=== PATIENT | female | born 1995 | race Caucasian/White ===

== ENCOUNTER → 2016-07-02 | Outpatient (CLI) | payer OTHER ==
--- NOTE | 2016-07-02 22:52 | DIAGNOSTIC IMAGING REPORT ---
MRI OF THE LEFT KNEE CLINICAL HISTORY: Left knee pain. Injury. COMPARISON STUDY: Radiograph of the left knee dated 07/02/2016. TECHNIQUE: MRI of the left knee was performed utilizing proton density, T1, and T2-weighted sequences in the axial, sagittal, coronal planes. IV contrast was not administered for this examination. The examination is degraded by large body habitus which were acquired using the long bone coil. Examination is also degraded by motion artifact. FINDINGS: Menisci: The medial and lateral menisci are intact as imaged. Ligaments: The anterior and posterior cruciate ligaments are intact. The medial and lateral collateral ligaments are within normal limits as visualized. Extensor mechanism: The extensor mechanism is intact. Hoffa's fat pad is normal in appearance. Articular cartilage and bone: There is a comminuted fracture involving the medial patellar facet with distracted fragments. There is tearing of the medial patellar retinaculum with associated lateral subluxation of the patella. No additional fracture is seen. There are small lateral marginal osteophytes. The medial patellar fracture extends through the articular cartilage of the medial facet. There is also full-thickness fissuring seen at the patellar apex. The articular cartilage is otherwise well maintained all 3 compartments. A calcified fabella is noted. Joint effusion: Lipohemarthrosis is noted. Soft tissues: Prepatellar soft tissue edema is observed. The musculature surrounding the knee joint demonstrates symmetric atrophy. Mild intramuscular edema is seen within the vastus medialis muscle. Normal signal intensity is preserved throughout the remaining musculature. IMPRESSION: 1. Degraded examination as above. 2. There is a comminuted fracture involving the medial patellar facet as above with associated lipohemarthrosis. 3. There is tearing of the medial patellar retinaculum with lateral subluxation of the patella. 4. No additional fracture is identified. 5. The menisci, cruciate ligaments, and collateral ligaments appear intact as visualized. 6. The fracture causes disruption of the articular cartilage in the medial patellar facet as above. Electronically signed by: Douglas Hilliard M.D. 07/02/2016 10:50 PM Dictated Date/Time: 07/02/2016 10:44 PM
== END | disposition home or self-care (01) ==
LOC: C.MRI 19:34
PROVIDERS: ATTEND Family Medicine
DX: S82.042A Displaced comminuted fracture of left patella, initial encounter for closed fracture (principal); X58.XXXA Exposure to other specified factors, initial encounter

== ENCOUNTER → 2016-07-02 | Outpatient (CLI) | payer OTHER ==
--- NOTE | 2016-07-02 22:01 | DIAGNOSTIC IMAGING REPORT ---
LEFT KNEE 4 VIEWS CLINICAL HISTORY: Left knee pain. FINDINGS: AP, crosstable lateral, tunnel, and sunrise views of the left knee are obtained. No prior studies are available for comparison at the time of dictation. The skeletal structures are well mineralized. There is a comminuted and distracted fracture involving the medial patellar facet with lateral patellar subluxation. There is associated lipohemarthrosis. No additional fracture is identified. The joint spaces appear maintained. There are lateral marginal osteophytes. No osteochondral defect is seen on the tunnel image. Overlying soft tissue edema is observed. A calcified fabella is incidentally noted. IMPRESSION: 1. There is a comminuted and minimally distracted fracture through the medial patellar facet with lateral patellar subluxation. 2. There is associated lipohemarthrosis and soft tissue swelling. 3. Overlying soft tissue edema is observed. Electronically signed by: Douglas Hilliard M.D. 07/02/2016 10:00 PM Dictated Date/Time: 07/02/2016 9:57 PM
== END | disposition home or self-care (01) ==
LOC: C.RDSM 16:00
PROVIDERS: ATTEND Family Medicine
DX: M25.562 Pain in left knee (principal)

== ENCOUNTER → 2016-07-15 | Outpatient (CLI) | payer OTHER | END | disposition home or self-care (01) | LOC: C.RDSM 09:02 | PROVIDERS: ATTEND Physical Medicine & Rehabilitation Sports Medicine | DX: S83.015D Lateral dislocation of left patella, subsequent encounter (principal); X58.XXXD Exposure to other specified factors, subsequent encounter ==

== ENCOUNTER → 2016-09-03 | Outpatient (CLI) | payer OTHER | END | disposition home or self-care (01) | LOC: C.RDSM 12:00 | PROVIDERS: ATTEND Physical Medicine & Rehabilitation Sports Medicine | DX: S83.015D Lateral dislocation of left patella, subsequent encounter (principal); X58.XXXD Exposure to other specified factors, subsequent encounter ==

== ENCOUNTER → 2016-10-16 | Outpatient (CLI) | payer OTHER | END | disposition home or self-care (01) | LOC: C.RDSM 14:39 | PROVIDERS: ATTEND Physical Medicine & Rehabilitation Sports Medicine | DX: S83.015D Lateral dislocation of left patella, subsequent encounter (principal); X58.XXXD Exposure to other specified factors, subsequent encounter ==